=== PATIENT | male | born 1985 | race Caucasian/White ===

== ENCOUNTER 2016-05-02 07:31 | Emergency (ER) | payer OTHER ==
[~2016-05-02] VITALS: Ht 182.9 cm; Wt 113.4 kg
[2016-05-02] MEDS: IBUPROFEN 800 MG TAB PO ONE (08:47)
[2016-05-02 09:26] VITALS: BP 136/88
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
== END 2016-05-02 09:38 | disposition home or self-care (01) ==
LOC: M ED 09:36
DX: S13.4XXA Sprain of ligaments of cervical spine, initial encounter (principal); S93.402A Sprain of unspecified ligament of left ankle, initial encounter; V49.40XA Driver injured in collision with unspecified motor vehicles in traffic accident, initial encounter; Y92.410 Unspecified street and highway as the place of occurrence of the external cause; Y93.89 Activity, other specified; Y99.9 Unspecified external cause status

== ENCOUNTER 2018-02-13 14:17 | Emergency (ER) | payer MEDICAID, OTHER, SELFPAY ==
[~2018-02-13] VITALS: Ht 182.9 cm; Wt 113.6 kg
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
[2018-02-13] MEDS ORDERED: MORPHINE 10 MG/ML 1ML VIAL (J2270) IM ONE (15:30)
[2018-02-13] MEDS ORDERED: ONDANSETRON 4 MG ORAL DISINTEGRATING TAB (Q0162 PER 1MG) PO ONE (15:30)
[2018-02-13] MEDS ORDERED: LIDOCAINE 1% MDV 20ML VIAL IM ONE (15:30)
[2018-02-13] MEDS ORDERED: NORCOTAB PO (15:31)
[2018-02-13] MEDS ORDERED: KEFL500C17 PO (15:31)
[2018-02-13 16:19] VITALS: BP 140/85
== END 2018-02-13 16:31 | disposition home or self-care (01) ==
LOC: M ED 14:17
DX: S62.616B Displaced fracture of proximal phalanx of right little finger, initial encounter for open fracture (principal); S61.316A Laceration without foreign body of right little finger with damage to nail, initial encounter; W31.89XA Contact with other specified machinery, initial encounter; Y92.099 Unspecified place in other non-institutional residence as the place of occurrence of the external cause; Y93.9 Activity, unspecified; Y99.9 Unspecified external cause status; Z88.8 Allergy status to other drugs, medicaments and biological substances
CPT/HCPCS: 12001; 73140; 96372; 99284; J2270; Q0162

== ENCOUNTER 2022-11-27 15:08 | Inpatient (IN) | payer BC, MEDICAID, SELFPAY ==
[~2022-11-27] VITALS: Ht 182.9 cm; Wt 127.6 kg
[~2022-11-27 15:08] MED LIST: HYDR-3715 PO; KEFL500C17 PO
[2022-11-27 17:51] LABS: BASO % 0.3 % (0.0-1.0); EOS # 0.1 10^3/uL (0.0-0.5); EOS % 0.3 % (0.0-3.0); HEMATOCRIT 45.4 % (42.0-52.0); HEMOGLOBIN 15.4 g/dl (13.5-17.5); LYMPH % 6.8 % (24.0-44.0); MEAN CORPUSCULAR HEMOGLOBIN 31.2 pg (27.0-33.0); MEAN CORPUSCULAR HGB CONC 33.9 g/dl (32.0-36.5); MEAN CORPUSCULAR VOLUME 91.9 fl (80.0-96.0); MONO # 0.7 10^3/uL (0.0-0.8); MONO % 4.3 % (2.0-8.0); NEUTROPHILS # 13.3 10^3/uL (1.5-8.5); NEUTROPHILS % 87.6 % (36.0-66.0); PLATELET COUNT, AUTOMATED 213 10^3/uL (150-450); RED BLOOD COUNT 4.94 10^6/uL (4.30-6.10); WHITE BLOOD COUNT 15.2 10^3/uL (4.0-10.0)
[2022-11-27 18:21] LABS: ALBUMIN 4.1 G/DL (3.2-5.2); ALKALINE PHOSPHATASE 75 U/L (46-116); ALT/SGPT 45 U/L (7.0-40); AST/SGOT 29 U/L (<34); BILIRUBIN,TOTAL 0.3 MG/DL (0.3-1.2); BLOOD UREA NITROGEN 13 MG/DL (9-23); CALCIUM LEVEL 9.3 MG/DL (8.5-10.1); CARBON DIOXIDE LEVEL 26 MMOL/L (20-31); CHLORIDE LEVEL 104 MMOL/L (98-107); CREATININE FOR GFR 0.83 MG/DL (0.70-1.30); GLOMERULAR FILTRATION RATE > 60.0 (>60); GLUCOSE, FASTING 97 MG/DL (60-100); POTASSIUM SERUM 3.8 MMOL/L (3.5-5.1); SODIUM LEVEL 139 MMOL/L (136-145); TOTAL PROTEIN 7.1 G/DL (5.7-8.2)
[2022-11-27 18:24] LABS: RSV AMPLIFICATION NEGATIVE (NEGATIVE)
[2022-11-27] MEDS ORDERED: NORCO, ANEXSIA 5/325MG TABLET (HYDROcodone/ACETAMINOPHEN) PO ONE (19:05)
[2022-11-27] MEDS ORDERED: ONDANSETRON 4MG 2ML VIAL IV PRN (19:40)
[2022-11-27] MEDS ORDERED: HYDROMORPHONE HCL 0.5 MG/ 0.5 ML SYRINGE IV PRN (19:40)
[2022-11-27] MEDS ORDERED: BISACODYL 5MG TAB PO PRN (19:40)
[2022-11-27] MEDS ORDERED: ACETAMINOPHEN TAB 650MG DOSE (2X325MG) PO PRN (19:40)
[2022-11-27] MEDS: LR 1,000 ML IV SCH ×2 (20:41→21:03)
[2022-11-27 20:50] VITALS: BP 133/93; TEMP 98.6; O2SAT 96
[2022-11-27] MEDS ORDERED: ALBU8.5H INH (21:41)
[2022-11-27] MEDS ORDERED: VITA200032 PO (21:41)
[2022-11-27] MEDS ORDERED: VITMTA PO (21:41)
[2022-11-27] MEDS ORDERED: RISATAB3 PO (21:41)
[2022-11-27] MEDS ORDERED: HOME MED LIST COMPLETE! XX SCH (21:45)
[2022-11-27 22:05] VITALS: O2SAT 95
[2022-11-28] MEDS: LR 1,000 ML IV SCH (02:36)
[2022-11-28] MEDS: HYDROMORPHONE HCL 0.5 MG/ 0.5 ML SYRINGE IV PRN ×4 (02:37→21:40)
[2022-11-28 06:00] VITALS: BP 133/78; TEMP 98.2; O2SAT 95
[2022-11-28] MEDS ORDERED: ALBUTEROL 90 MCG/ACT 8GM HFA INHALER INH PRN (07:10)
[2022-11-28 08:26] LABS: BASO % 0.4 % (0.0-1.0); EOS # 0.1 10^3/uL (0.0-0.5); EOS % 1.3 % (0.0-3.0); HEMATOCRIT 40.6 % (42.0-52.0); HEMOGLOBIN 13.9 g/dl (13.5-17.5); LYMPH # 1.2 10^3/uL (1.5-5.0); LYMPH % 14.3 % (24.0-44.0); MEAN CORPUSCULAR HEMOGLOBIN 31.2 pg (27.0-33.0); MEAN CORPUSCULAR HGB CONC 34.2 g/dl (32.0-36.5); MEAN CORPUSCULAR VOLUME 91.2 fl (80.0-96.0); MONO # 0.8 10^3/uL (0.0-0.8); MONO % 9.4 % (2.0-8.0); NEUTROPHILS # 6.3 10^3/uL (1.5-8.5); NEUTROPHILS % 74.2 % (36.0-66.0); PLATELET COUNT, AUTOMATED 170 10^3/uL (150-450); RED BLOOD COUNT 4.45 10^6/uL (4.30-6.10); WHITE BLOOD COUNT 8.4 10^3/uL (4.0-10.0)
[2022-11-28 14:00] VITALS: BP 134/81; TEMP 99; O2SAT 97
[2022-11-28 20:00] VITALS: BP 154/87; TEMP 98.8; O2SAT 98
[2022-11-28] MEDS ORDERED: HEPARIN SOD (PORCINE) 5000UNITS/ML 1ML VIAL/SYRINGE SC SCH (22:00)
[2022-11-29] MEDS: HYDROMORPHONE HCL 0.5 MG/ 0.5 ML SYRINGE IV PRN (03:11)
[2022-11-29 05:01] VITALS: BP 150/88; TEMP 98; O2SAT 94
[2022-11-29 08:15] VITALS: BP 146/89; TEMP 98.4; O2SAT 92
[2022-11-29] MEDS ORDERED: TRANEXAMIC ACID 100 MG/ML 10ML VIAL As Ordered ONE (08:37)
[2022-11-29] MEDS ORDERED: ceFAZolin 2 GM/D5W 50 ML IV BAG As Ordered ONE (08:38)
[2022-11-29] MEDS ORDERED: HYDROMORPHONE HCL 0.5 MG/ 0.5 ML SYRINGE IV PRN (08:45)
[2022-11-29] MEDS ORDERED: oxyCODONE 5MG TAB PO PRN (08:45)
[2022-11-29] MEDS ORDERED: ONDANSETRON 4MG 2ML VIAL IV PRN (08:45)
[2022-11-29] MEDS ORDERED: fentaNYL 100 MCG/2 ML INJECTION IV PRN (08:45)
[2022-11-29] MEDS ORDERED: MIDAZOLAM INJ 2MG/2ML VIAL IV PRN (08:45)
[2022-11-29] MEDS ORDERED: LR 1,000 ML IV SCH (08:45)
[2022-11-29 08:47] LABS: BASO % 0.3 % (0.0-1.0); EOS # 0.2 10^3/uL (0.0-0.5); EOS % 1.8 % (0.0-3.0); HEMATOCRIT 44.6 % (42.0-52.0); HEMOGLOBIN 15.2 g/dl (13.5-17.5); LYMPH # 1.2 10^3/uL (1.5-5.0); LYMPH % 12.1 % (24.0-44.0); MEAN CORPUSCULAR HEMOGLOBIN 31.2 pg (27.0-33.0); MEAN CORPUSCULAR HGB CONC 34.1 g/dl (32.0-36.5); MEAN CORPUSCULAR VOLUME 91.6 fl (80.0-96.0); MONO # 0.7 10^3/uL (0.0-0.8); MONO % 7.5 % (2.0-8.0); NEUTROPHILS # 7.6 10^3/uL (1.5-8.5); NEUTROPHILS % 77.9 % (36.0-66.0); PLATELET COUNT, AUTOMATED 184 10^3/uL (150-450); RED BLOOD COUNT 4.87 10^6/uL (4.30-6.10); WHITE BLOOD COUNT 9.8 10^3/uL (4.0-10.0)
[2022-11-29] MEDS ORDERED: ceFAZolin 1GM VIAL As Ordered ONE (08:57)
[2022-11-29] MEDS ORDERED: ROPIvacaine 0.5% 30ML VIAL PN ONE (09:00)
[2022-11-29] MEDS ORDERED: EPINEPHrine INJ 1 MG/ML 1ML AMP PN ONE (09:00)
[2022-11-29] MEDS ORDERED: LIDOCAINE 1% SDV 5ML VIAL PN ONE (09:00)
[2022-11-29] MEDS: fentaNYL 100 MCG/2 ML INJECTION IV PRN ×2 (09:03→09:24)
[2022-11-29 09:15] LABS: BLOOD UREA NITROGEN 9 MG/DL (9-23); CALCIUM LEVEL 8.7 MG/DL (8.5-10.1); CARBON DIOXIDE LEVEL 30 MMOL/L (20-31); CHLORIDE LEVEL 105 MMOL/L (98-107); CREATININE FOR GFR 0.77 MG/DL (0.70-1.30); GLOMERULAR FILTRATION RATE > 60.0 (>60); GLUCOSE, FASTING 113 MG/DL (60-100); POTASSIUM SERUM 4.2 MMOL/L (3.5-5.1); SODIUM LEVEL 140 MMOL/L (136-145)
[2022-11-29] MEDS ORDERED: propofoL 200 MG/20 ML VIAL As Ordered ONE (09:57)
[2022-11-29] MEDS ORDERED: fentaNYL 100 MCG/2 ML INJECTION As Ordered ONE ×2 (09:57→11:10)
[2022-11-29] MEDS ORDERED: LIDOCAINE 2% 100MG/5ML SDV (FOR ANES.) As Ordered ONE (09:57)
[2022-11-29] MEDS ORDERED: ACETAMINOPHEN 1000MG 100ML IV BAG As Ordered ONE (09:57)
[2022-11-29] MEDS ORDERED: MIDAZOLAM INJ 2MG/2ML VIAL As Ordered ONE (09:57)
[2022-11-29] MEDS ORDERED: ONDANSETRON 4MG 2ML VIAL As Ordered ONE (09:57)
[2022-11-29] MEDS ORDERED: KETOROLAC 60MG 2ML VIAL As Ordered ONE (09:57)
[2022-11-29] MEDS ORDERED: ePHEDrine SULFATE 25 MG/5 ML(5MG/ML) SYRINGE As Ordered ONE (10:13)
[2022-11-29 12:00] VITALS: BP 146/91; TEMP 98.2; O2SAT 92
[2022-11-29 12:30] VITALS: BP 153/105; TEMP 98.1; O2SAT 95
[2022-11-29 13:00] VITALS: BP 148/88; TEMP 98.2; O2SAT 93
[2022-11-29] MEDS ORDERED: ECOT81TA5 PO (13:32)
[2022-11-29] MEDS ORDERED: OXYC7.5T3 PO (13:32)
[2022-11-29 14:00] VITALS: BP 146/88; TEMP 98.2; O2SAT 94
== END 2022-11-29 14:49 | disposition home or self-care (01) | DRG 912 ==
LOC: M ED 15:08 → M ED INP 19:36 → CANRESERV 20:03 → ENRESERV 20:03 → M MSPAV 20:50
PROVIDERS: ADMIT Internal Medicine; ATTEND Student in an Organized Health Care Education/Training Program
PROC: 0QSK04Z Reposition Left Fibula with Internal Fixation Device, Open Approach (ICD-10-PCS; principal; 2022-11-29 08:30)
DX: S82.492A Other fracture of shaft of left fibula, initial encounter for closed fracture (principal); S06.9XAA Unspecified intracranial injury with loss of consciousness status unknown, initial encounter; W01.0XXA Fall on same level from slipping, tripping and stumbling without subsequent striking against object, initial encounter; Y93.H2 Activity, gardening and landscaping; R41.3 Other amnesia; Z79.899 Other long term (current) drug therapy; Y92.821 Forest as the place of occurrence of the external cause

== ENCOUNTER → 2022-12-17 | Outpatient (CLI) | payer BC ==
[~2022-12-17] MED LIST changes: +ALBU8.5H INH; +ECOT81TA5 PO; +OXYC7.5T3 PO; +RISATAB3 PO; +VITA200032 PO; +VITMTA PO
== END ==
LOC: M SOG 08:20
PROVIDERS: ATTEND Orthopaedic Surgery
DX: S82.832A Other fracture of upper and lower end of left fibula, initial encounter for closed fracture (principal)

== ENCOUNTER → 2023-01-14 | Outpatient (CLI) | payer BC | LOC: M SOG 07:55 | PROVIDERS: ATTEND Orthopaedic Surgery | DX: S82.832A Other fracture of upper and lower end of left fibula, initial encounter for closed fracture (principal); W18.30XA Fall on same level, unspecified, initial encounter; Y92.009 Unspecified place in unspecified non-institutional (private) residence as the place of occurrence of the external cause ==